=== PATIENT | female | born 1975 | race Caucasian/White ===

== ENCOUNTER 2020-03-24 20:47 | Emergency (ER) | payer BC, OTHER ==
[2020-03-24 21:02] VITALS: BMI 29.2
[2020-03-24] MEDS ORDERED: PANTOPRAZOLE SODIUM 40 MG in SODIUM CHLORIDE 100 ML IVPB ONE (21:25)
[2020-03-24] MEDS ORDERED: SODIUM CHLORIDE 1,000 ML IV STA (21:25)
[2020-03-24] MEDS ORDERED: PANTOPRAZOLE SODIUM 40 MG/100 ML BAG IVPB ONE (21:31)
[2020-03-24 21:50] LABS: BASO % 0.2 % (0-2.0); EOS % 0.5 % (0-4.5); HEMATOCRIT 35.6 % (32.4-45.2); HEMOGLOBIN 11.7 GM/dL (10.7-15.3); LYMPH % 3.7 % (8-40); MCH 37.4 pg (25.7-33.7); MEAN CELL VOLUME 113.5 fl (80-96); MEAN PLT VOLUME 8.7 fl (7.5-11.1); MONO % 0.3 % (3.8-10.2); NEUT % 95.3 % (42.8-82.8); PLATELET COUNT 129 K/MM3 (134-434); RBC 3.14 M/mm3 (3.60-5.2); RDW 19.3 % (11.6-15.6); RETICULOCYTES 6.58 % (0.5-1.5)
[2020-03-24 21:56] LABS: INR 2.72 (0.83-1.09); PROTHROMBIN TIME (PATIENT) 32.5 SEC (9.7-13.0)
[2020-03-24 21:59] LABS: ACTIVATED PTT 39.9 SECONDS (25.2-36.5)
[2020-03-24] MEDS ORDERED: VANCOMYCIN 1,000 MG in DEXTROSE 5%-WATER - 250 ML IVPB ONE (21:59)
[2020-03-24] MEDS ORDERED: PIPERACILLIN/TAZOB 4.5 GM 4.5 GM in DEXTROSE 5%-WATER 100 ML IVPB ONE (21:59)
[2020-03-24] MEDS ORDERED: CLINDAMYCIN 900 MG PREMIX IVPB 900 MG/50 ML BAG IVPB ONE ×2 (21:59→22:36)
[2020-03-24 22:02] LABS: CHLORIDE 81 mmol/L (98-107)
[2020-03-24 22:05] LABS: BLOOD UREA NITROGEN 12.7 mg/dL (7-18); CO2 15 mmol/L (21-32)
[2020-03-24 22:06] LABS: MAGNESIUM 1.9 mg/dL (1.8-2.4)
[2020-03-24 22:07] LABS: SGPT/ALT 81 U/L (13-61)
[2020-03-24 22:08] LABS: CREATININE 3.1 mg/dL (0.55-1.3); SGOT/AST 104 U/L (15-37)
[2020-03-24 22:09] LABS: PHOSPHOROUS 4.2 mg/dL (2.5-4.9)
[2020-03-24 22:10] LABS: ALK PHOS 304 U/L (45-117)
[2020-03-24] MEDS ORDERED: PIPERACILLIN/TAZOB 4.5 GM 4.5 GM/100 ML BAG IVPB ONE (22:37)
[2020-03-24] MEDS ORDERED: VANCOMYCIN 1 GRAM (PRE-DOCKED) 1,000 MG/250 ML BAG IVPB ONE (22:37)
[2020-03-24 22:43] LABS: LDH 690 U/L (84-246)
[2020-03-24 23:01] LABS: ANISOCYTOSIS 3+; MACROCYTOSIS 3+; PLATELET ESTIMATE DECREASED
[2020-03-24 23:05] LABS: ANION GAP 23 MMOL/L (8-16); BILIRUBIN,DIRECT 17.1 mg/dL (0.0-0.2); LIPASE 31 U/L (73-393)
[2020-03-24] MEDS ORDERED: DEXTROSE 50%-WATER - 25 GM/50 ML VIAL IVPUSH ONE (23:08)
[2020-03-24 23:09] LABS: BILIRUBIN,TOTAL 19.3 mg/dL (0.2-1); GLUCOSE,RANDOM 46 mg/dL (74-106); SODIUM 119 mmol/L (136-145)
[2020-03-24] MEDS ORDERED: DEXTROSE 50%-WATER 25 GM/50 ML DISP.SYRIN ONE (23:14)
[2020-03-24] MEDS ORDERED: DEXTROSE 5%-NORMAL SALINE 1,000 ML IV SCH (23:15)
[2020-03-24 23:30] VITALS: BP 129/77; PULSE 112; TEMP 98
[2020-03-24] MEDS ORDERED: LACTATED RINGERS SOLUTION 1000 ML INFUS.BAG IV ONE (23:40)
== END 2020-03-24 23:35 | disposition short-term general hospital (02) ==
LOC: JER 20:47
PROC: 3E03329 Introduction of Other Anti-infective into Peripheral Vein, Percutaneous Approach (ICD-10-PCS; principal; 2020-03-24)
PROC: 3E013VG Introduction of Insulin into Subcutaneous Tissue, Percutaneous Approach (ICD-10-PCS; 2020-03-24)
PROC: 3E013VG Introduction of Insulin into Subcutaneous Tissue, Percutaneous Approach (ICD-10-PCS; 2020-03-24)
PROC: 3E033GC Introduction of Other Therapeutic Substance into Peripheral Vein, Percutaneous Approach (ICD-10-PCS; 2020-03-24)
PROC: 3E03329 Introduction of Other Anti-infective into Peripheral Vein, Percutaneous Approach (ICD-10-PCS; 2020-03-24)
PROC: 3E03329 Introduction of Other Anti-infective into Peripheral Vein, Percutaneous Approach (ICD-10-PCS; 2020-03-24)
PROC: 3E0337Z Introduction of Electrolytic and Water Balance Substance into Peripheral Vein, Percutaneous Approach (ICD-10-PCS; 2020-03-24)
DX: M72.6 Necrotizing fasciitis (principal); D68.9 Coagulation defect, unspecified; A41.9 Sepsis, unspecified organism; N17.9 Acute kidney failure, unspecified; E16.2 Hypoglycemia, unspecified
CPT/HCPCS: 36415; 70450-TC; 71250-TC; 74176-TC; 80053; 80307; 82140; 82248; 82272; 82550; 82962; 83605; 83615; 83690; 83735; 84100; 84484; 84703; 85025; 85045; 85610; 85730; 86140; 86850; 86900; 86901; 93005; 93010; 99291; 99292; C9803; U0003